=== PATIENT | female | born 1965 | race Caucasian/White ===

== ENCOUNTER 2019-04-19 20:05 | Emergency (ER) | payer SELFPAY ==
[2019-04-19] MEDS ORDERED: Fluorescein 1 MG Ophth Strip EYEBOTH ONE (20:18)
[2019-04-19] MEDS ORDERED: Proparacaine 0.5% Ophth Soln 15 ML Bottle EYEBOTH ONE (20:18)
[2019-04-19] MEDS ORDERED: Proparacaine 0.5% Ophth Soln 15 ML Bottle EYERT ONE (20:27)
--- NOTE | 2019-04-19 20:32 | EDM.PDOC ---
ED HPI GENERAL MEDICAL PROBLEM - General Chief Complaint: Eye Problems Stated Complaint: GOT SOMETHING IN THE EYES Time Seen by Provider: 04/19/19 20:29 - History of Present Illness INITIAL COMMENTS - FREE TEXT/NARRATIVE: 53-year-old female presents the emergency room with an eye irritation. Approximately 2:00 this afternoon the patient was using Nioxin shampoo this is to enhance hair growth. She got some in both of her eyes and she has had irritation since that time. She is tried to rub her eyes several times without any relief. Patient denies any other exposures at this time. Bilateral Eye Pain Score (Numeric/FACES): 6 - Related Data Allergies Allergy/AdvReac Type Severity Reaction Status Date / Time codeine Allergy Vomiting Verified 04/19/19 20:15 Past Medical History - Past Health History Medical/Surgical History: Denies Medical/Surgical History - Infectious Disease History Infectious Disease History: Reports: Chicken Pox Social & Family History - Tobacco Use Smoking Status *Q: Current Every Day Smoker Years of Tobacco use: 10 Packs/Tins Daily: 0.1 - Caffeine Use Caffeine Use: Reports: Coffee - Recreational Drug Use Recreational Drug Use: Yes ED ROS GENERAL - Review of Systems Review Of Systems: See Below Constitutional: Reports: No Symptoms HEENT: Reports: Eye Pain Respiratory: Reports: No Symptoms Cardiovascular: Reports: No Symptoms Endocrine: Reports: No Symptoms GI/Abdominal: Reports: No Symptoms ED EXAM GENERAL W FULL EYE - Physical Exam Exam: See Below Exam Limited By: No Limitations General Appearance: Alert, No Apparent Distress Eye Exam: Bilateral Eye: Conjunctival Injection, PERRL Eyelids: Bilateral: Other (Difficult to get an eye exam visual acuity since patient will not keep her eyes open) Conjunctiva & Sclera: Bilateral: Injected Cornea Exam: Bilateral: Examined with Flourescein (No foreign bodies no fluorescein uptake noted) Extraocular Movements: Bilateral: Intact Pupils: Normal Accommodation Pupillary Reaction: Bilateral: Brisk Anterior Chamber: Bilateral: Normal Appearance Posterior Chamber: Bilateral: Unable to Examine Ears: Normal External Exam, Normal Canal, Hearing Grossly Normal, Normal TMs Nose: Normal Inspection, Normal Mucosa, No Blood Throat/Mouth: Normal Inspection, Normal Lips, Normal Teeth, Normal Gums, Normal Oropharynx, Normal Voice, No Airway Compromise Head: Atraumatic, Normocephalic Neck: Normal Inspection, Supple, Non-Tender, Full Range of Motion Cardiovascular: Regular Rate, Rhythm, No Edema, No Murmur GI/Abdominal: Normal Bowel Sounds, Soft, Non-Tender Course - Vital Signs Last Recorded V/S: Last Vital Signs Temp 37.1 C 04/19/19 20:16 Pulse 85 04/19/19 20:16 Resp 16 04/19/19 20:16 BP 136/90 04/19/19 20:16 Pulse Ox 100 04/19/19 20:16 - Orders/Labs/Meds Orders: Active Orders 24 hr Category Date Time Status Sodium Chloride 0.9% [Normal Saline] 2,000 ml Med 04/19/19 22:54 Active IV ONETIME Medication Orders Sodium Chloride (Normal Saline) 2,000 mls @ 999 mls/hr IV ONETIME ONE Stop: 04/20/19 00:54 Last Admin: 04/19/19 23:06 Dose: 999 mls/hr Meds: Medications Generic Name Dose Route Start Last Admin Trade Name Freq PRN Reason Stop Dose Admin Sodium Chloride 2,000 mls @ 999 mls/hr 04/19/19 22:54 04/19/19 23:06 Normal Saline IV 04/20/19 00:54 999 mls/hr ONETIME ONE Administration Discontinued Medications Generic Name Dose Route Start Last Admin Trade Name Freq PRN Reason Stop Dose Admin Erythromycin 1 gm 04/19/19 23:45 04/19/19 23:52 Erythromycin 0.5% Ophth Oint EYEBOTH 04/19/19 23:46 1 gm ONETIME ONE Administration Fluorescein Sodium 1 mg 04/19/19 20:18 04/19/19 23:06 Ful-Evelina EYEBOTH 04/19/19 20:19 1 mg ONETIME ONE Administration Sodium Chloride 1,000 mls @ 999 mls/hr 04/19/19 20:59 04/19/19 21:21 Sodium Chloride 0.9% IRR 04/19/19 21:59 999 mls/hr ONETIME ONE Administration Sodium Chloride Confirm 04/19/19 21:03 04/19/19 21:19 Normal Saline Administered 04/19/19 21:04 Not Given Dose 2,000 mls @ as directed .ROUTE .STK-MED ONE Proparacaine HCl 2 ml 04/19/19 20:18 Proparacaine 0.5% Ophth Soln EYEBOTH 04/19/19 20:19 ASDIRECTED ONE Proparacaine HCl 1 ml 04/19/19 20:27 04/19/19 21:18 Proparacaine 0.5% Poncho Zuniga EYERT 04/19/19 20:28 1 ml ONETIME ONE Administration - Re-Assessments/Exams Free Text/Narrative Re-Assessment/Exam: 04/19/19 23:47 His case was discussed with poison control they recommended eye irrigation fluorescein examination make sure the corneas were okay. The patient had some proparacaine drops placed in her eyes. Lico lens were applied and a liter of fluid flush to each eye this did help but did not alleviate the pain completely. I did evaluate the eyes after this there was no evidence of any foreign bodies in the eyes no inverted eyelids. Fluorescein exam was done no corneal abrasions or fluorescein uptake was done. She was still having some irritation I repeated the irrigation 1 L to each eye using the Lico lens this helped a little bit. At the time of discharge offered analgesic medication but the patient would like to hold off on this and just use [id number] Tylenol or ibuprofen. I have recommended she follow-up with her eye doctor tomorrow and she agrees to do so. She will be discharged on erythromycin ointment about a third of an inch to each eye every couple hours while awake Departure - Departure Time of Disposition: 23:49 Disposition: Home, Self-Care 01 Clinical Impression: Chemical injury of eye - Discharge Information Instructions: Chemical Burn of the Eyes, Adult Referrals: PCP,None [Primary Care Provider] - Forms: ED Department Discharge Additional Instructions: Return to the emergency room with any questions problems or worsening symptoms. Follow-up with your eye doctor for recheck tomorrow. Use the erythromycin ointment about a third of an inch behind the lower eyelid every couple hours while awake. Sepsis Event Note - Evaluation Sepsis Screening Result: No Definite Risk - Focused Exam Vital Signs: Vital Signs Temp Pulse Resp BP Pulse Ox 04/19/19 20:16 37.1 C 85 16 136/90 100 Date Exam was Performed: 04/19/19 Time Exam was Performed: 23:53 - My Orders Last 24 Hours: My Active Orders 04/19/19 22:54 Sodium Chloride 0.9% [Normal Saline] 2,000 ml IV ONETIME - Assessment/Plan Last 24 Hours: My Active Orders 04/19/19 22:54 Sodium Chloride 0.9% [Normal Saline] 2,000 ml IV ONETIME
[2019-04-19] MEDS ORDERED: Sodium Chloride 0.9% 1,000 ML IRR ONE (20:59)
[2019-04-19] MEDS ORDERED: Sodium Chloride 0.9% 2,000 ML ONE (21:03)
[2019-04-19] MEDS ORDERED: Sodium Chloride 0.9% 2,000 ML IV ONE (22:54)
[2019-04-19] MEDS ORDERED: Erythromycin Base 0.5% Ophth Oint 1 GM Tube EYEBOTH ONE (23:45)
== END 2019-04-20 00:08 | disposition home or self-care (01) ==
LOC: JD.ED 20:05
DX: S05.92XA Unspecified injury of left eye and orbit, initial encounter (principal); S05.91XA Unspecified injury of right eye and orbit, initial encounter; F17.210 Nicotine dependence, cigarettes, uncomplicated; Z88.5 Allergy status to narcotic agent; X58.XXXA Exposure to other specified factors, initial encounter; Y93.E1 Activity, personal bathing and showering
CPT/HCPCS: 99283; A9270; J7030